=== PATIENT | male | born 1990 | race African-American/Black ===

== ENCOUNTER 2017-01-14 23:45 | Emergency (ER) | payer SELFPAY ==
[~2017-01-14] VITALS: Ht 185.4 cm; Wt 92.0 kg
[~2017-01-14 23:45] MED LIST: PRED20 PO
[2017-01-14 23:47] VITALS: BP 127/58; PULSE 63; RESP 15; TEMP 98.7; O2SAT 98
--- NOTE | 2017-01-15 01:54 | PD ---
HPI Chief Complaint: Injury Time Seen by Provider: : Travel History International Travel<30 days: No Contact w/Intl Traveler<30days: No Traveled to known affect area: No History of Present Illness HPI Patient is a 26-year-old male presenting to the emergency department for evaluation of left first toe pain. Patient states he dropped a 20 pound weight on his foot on Tuesday, since that time he's had pain when he bends his toe or walks. He is able to ambulate and bear weight. He reports the pain as a 6 out of 10. He reports that the redness around the nail has increased since it happened. He denies any numbness or tingling, fever, chills. PFSH Past Medical History Asthma: Yes Diminished Hearing: No Past Surgical History Surgical History: No Previous Surgery Social History Alcohol Use: Yes (OCC) Tobacco Use: No Substance Use: No Allergies-Medications (Allergen,Severity, Reaction): Coded Allergies: No Known Allergies (Verified , 01/15/17) Reported Meds & Prescriptions Reported Meds & Active Scripts Active No Active Prescriptions or Reported Medications Review of Systems Except as stated in HPI: all other systems reviewed are Neg Musculoskeletal: Positive: Limited ROM, Pain Skin: Positive Change in Pigmentation Physical Exam Narrative GENERAL: Well-developed, well-nourished, alert gentleman. Resting comfortably in no acute distress. SKIN: Warm and dry. Left first toe with partial subungual hematoma on the proximal aspect of the nailbed. Hematoma extends to the skin adjacent to the nailbed proximally. Mild erythema noted. Significantly tender to palpation. HEAD: Normocephalic. EYES: No scleral icterus. No injection or drainage. NECK: Supple, trachea midline. No JVD or lymphadenopathy. CARDIOVASCULAR: Regular rate and rhythm without murmurs, gallops, or rubs. RESPIRATORY: Breath sounds equal bilaterally. No accessory muscle use. GASTROINTESTINAL: Abdomen soft, non-tender, nondistended. MUSCULOSKELETAL: No cyanosis, or edema. Decreased flexion and extension of left first toe. 2+ dorsalis pedal pulses bilaterally. Brisk less than 3 second capillary refill. BACK: Nontender without obvious deformity. No CVA tenderness. Data Data Last Documented VS Vital Signs Date Time Temp Pulse Resp B/P (MAP) Pulse Ox O2 Delivery O2 Flow Rate FiO2 10/6/17 23:47 98.7 63 15 127/58 (81) 98 Room Air Orders Orders Foot, Complete ([id number]) (01/15/17 ) Oxycodone-Acetamin 5-325 Mg (Percocet (01/15/17 02:00) Cephalexin (Keflex) (01/15/17 02:00) MDM Medical Decision Making Medical Screen Exam Complete: Yes Emergency Medical Condition: Yes Interpretation(s) Vital Signs Date Time Temp Pulse Resp B/P (MAP) Pulse Ox O2 Delivery O2 Flow Rate FiO2 01/14/17 23:47 98.7 63 15 127/58 (81) 98 Room Air Differential Diagnosis Fracture versus cellulitis versus hematoma versus other Narrative Course Patient was interviewed 2 days of left toe pain after dropping a weight on his foot. Attempted nail trepidation, no blood was able to be evacuated. Toe appears mildly cellulitic, patient will be given dose of Keflex now. He will also given a dose of Percocet for pain. Imaging is pending. Imaging of the left foot was read by the radiologist, there is no acute abnormality noted. Patient be discharged home with a postop shoe. He is encouraged to rest, ice, elevate extremity. He is encouraged to take medications as directed. He is encouraged follow-up with his primary doctor return to emergency room for any new or worsening symptoms. Patient verbalized understanding of instructions. Patient is stable for discharge. Diagnosis Primary Impression: Subungual hematoma of great toe of left foot Qualified Codes: S90.212A - Contusion of left great toe with damage to nail, initial encounter Additional Impressions: Contusion, toe Qualified Codes: S90.112A - Contusion of left great toe without damage to nail , initial encounter Cellulitis Qualified Codes: L03.032 - Cellulitis of left toe Referrals: Primary Care Physician 3 days Patient Instructions: Cellulitis (ED), Foot Contusion (ED), General Instructions, Subungual Hematoma (ED) Additional Instructions: Rest, ice, elevate extremity Wear postop shoe for comfort Follow-up with your primary doctor Return to emergency department for any new or worsening symptoms Take medications as directed Med/Other Pt SpecificInfo: Prescription(s) given Scripts Tramadol (Tramadol) 50 Mg Tab 50 MG PO Q6H Y for PAIN, #8 TAB 0 Refills Prov: Sara Barry 01/15/17 Ibuprofen (Ibuprofen) 800 Mg Tab 800 MG PO Q6HR Y for PAIN, #40 TAB 0 Refills Prov: Sara Barry 01/15/17 Cephalexin (Keflex) 500 Mg Cap 500 MG PO Q12H for Infection for 10 Days, #20 CAP 0 Refills Prov: Sara Barry 01/15/17 Disposition: 01 DISCHARGE HOME Condition: Stable Sara Barry Jan 15, 2017 01:54
[2017-01-15] MEDS ORDERED: oxyCODONE/ACETAMINOPHEN 5 MG/325 MG TAB PO ONE (02:00)
[2017-01-15] MEDS ORDERED: CEPHALEXIN MONOHYDRATE 500 MG CAP PO ONE (02:00)
--- NOTE | 2017-01-15 02:24 | RADRPT ---
EXAM DATE/TIME: 01/15/2017 00:21 [facility] COMPARISON: No previous studies available for comparison. INDICATIONS : Foot pain. MEDICAL HISTORY : None. SURGICAL HISTORY : None. ENCOUNTER: Initial ACUITY: 3 days PAIN SCORE: 8/10 LOCATION: Left foot, 1st [facility] FINDINGS: Three view examination of the left foot demonstrates no soft tissue swelling, dislocation, or fractur e. The tarsal bones appear intact. The interphalangeal and metatarsophalangeal joints are intact. The calcaneus is intact. Bony mineralization is normal. CONCLUSION: Unremarkable examination of the left foot. Zac Sanchez Jr., MD on January 15, 2017 at 0:38 Board Certified Radiologist. This report was verified electronically.
[2017-01-15] MEDS ORDERED: CEPH-460 PO (02:35)
[2017-01-15] MEDS ORDERED: IBUP800T23 PO (02:35)
[2017-01-15] MEDS ORDERED: TRAM50TA PO (02:35)
== END 2017-01-15 02:59 | disposition home or self-care (01) ==
LOC: NEPD 23:45
DX: S90.212A Contusion of left great toe with damage to nail, initial encounter (principal); L03.032 Cellulitis of left toe; J45.909 Unspecified asthma, uncomplicated; W22.8XXA Striking against or struck by other objects, initial encounter
CPT/HCPCS: 11740; 73630; 99284; L3260